=== PATIENT | male | born 1995 | race African-American/Black ===

== ENCOUNTER 2020-05-16 20:45 | Emergency (ER) | payer OTHER ==
[2020-05-16 21:12] VITALS: BP 127/75; PULSE 64; TEMP 98; BMI 24.8
[2020-05-16] MEDS ORDERED: KETOROLAC TROMETHAMINE 60 MG/2 ML VIAL IM ONE (21:13)
[2020-05-16] MEDS ORDERED: CYCLOBENZAPRINE HCL 10 MG TABLET (FP) PO ONE (21:13)
[2020-05-16] MEDS ORDERED: KETOROLAC TROMETHAMINE 60 MG/2 ML VIAL ONE (21:16)
[2020-05-16] MEDS ORDERED: CYCLOBENZAPRINE HCL 10 MG TABLET (FP) ONE (21:16)
== END 2020-05-16 21:44 | disposition home or self-care (01) ==
LOC: JERFT 20:45
PROC: 3E023GC Introduction of Other Therapeutic Substance into Muscle, Percutaneous Approach (ICD-10-PCS; principal; 2020-05-16)
DX: M62.838 Other muscle spasm (principal); V87.7XXA Person injured in collision between other specified motor vehicles (traffic), initial encounter
CPT/HCPCS: 99284-25

== ENCOUNTER 2025-01-10 08:22 | Emergency (ER) | payer OTHER ==
[2025-01-10 08:30] VITALS: BP 133/91; PULSE 72; RESP 20; TEMP 98.6; BMI 31.3
[2025-01-10] MEDS ORDERED: KETOROLAC TROMETHAMINE 30 MG/1 ML VIAL IM ONE (08:34)
[2025-01-10] MEDS ORDERED: IBUPROFEN 600 MG TABLET (FP) PO ONE (08:41)
[2025-01-10] MEDS: IBUPROFEN 600 MG TABLET (FP) PO ONE (08:44)
== END 2025-01-10 09:04 | disposition home or self-care (01) ==
LOC: FER 08:22
DX: S13.4XXA Sprain of ligaments of cervical spine, initial encounter (principal); W10.8XXA Fall (on) (from) other stairs and steps, initial encounter; Y93.01 Activity, walking, marching and hiking
CPT/HCPCS: 99283-25